=== PATIENT | female | born 1935 | race Caucasian/White ===

== ENCOUNTER 2019-01-17 09:37 | Day surgery (SDC) | payer MEDICARE ==
[2019-01-16 11:16] LABS: CHLORIDE 106 mmol/L (98-107)
[2019-01-16 12:01] LABS: ALANINE AMINOTRANSFERASE 24 U/L (12-78); ALBUMIN 3.6 g/dL (3.4-5.0); ALKALINE PHOSPHATASE 146 U/L (45-117); ANION GAP 8 mmol/L (5-15); BILIRUBIN,TOTAL 0.5 mg/dL (0.2-1.0); CALCIUM 9.2 mg/dL (8.5-10.1); CREATININE 0.88 mg/dL (0.55-1.02); TOTAL PROTEIN 7.1 g/dL (6.4-8.2)
[~2019-01-17] VITALS: Ht 147.3 cm; Wt 66.4 kg
[~2019-01-17 09:37] MED LIST: ATOR20TA37 PO; BUPIVACAINE/PF-EPI 0.5% 1:200K ONE; CARV3.122 PO; CITA40TA5 PO; LORA1TAB PO; LOSA25TA25 PO
[2019-01-17] MEDS ORDERED: LACTATED RINGERS 1,000 ML IV SCH (10:13)
[2019-01-17] MEDS ORDERED: ACETAMINOPHEN 500 MG TABLET PO ONE (10:30)
[2019-01-17] MEDS ORDERED: DIPHENHYDRAMINE 50 MG/ML, 1ML IVPush PRN (10:30)
[2019-01-17] MEDS ORDERED: HYDROmorphone 2 MG/ML, 1ML IVPush PRN (10:30)
[2019-01-17] MEDS ORDERED: GABAPENTIN 300 MG CAPSULE PO ONE (10:30)
[2019-01-17] MEDS ORDERED: PROMETHAZINE 25 MG/ML, 1ML IV PRN (10:30)
[2019-01-17] MEDS ORDERED: FENTANYL PF 100 MCG/2ML IV PRN (10:30)
[2019-01-17] MEDS ORDERED: PROCHLORPERAZINE 5 MG/ML, 2ML IV PRN (10:30)
[2019-01-17] MEDS ORDERED: LABETALOL 5MG/ML, 20ML IV PRN (10:30)
[2019-01-17] MEDS ORDERED: MEPERIDINE/PF 25MG/0.5ML IVPush PRN (10:30)
[2019-01-17] MEDS ORDERED: hydrALAzine 20 MG/ML, 1ML IV PRN (10:30)
[2019-01-17] MEDS ORDERED: METOPROLOL 1 MG/ML, 5ML IV PRN (10:30)
[2019-01-17] MEDS ORDERED: HALOPERIDOL 5 MG/ML IV PRN (10:30)
[2019-01-17] MEDS ORDERED: OXYcodone 5 MG/5 ML ORAL.SOL UDC PO PRN (10:30)
[2019-01-17] MEDS ORDERED: ONDANSETRON ODT 8 MG PO ONE (10:30)
[2019-01-17] MEDS: SCOPOLAMINE PATCH, 1.5MG PATCH.TD72 TD ONE ×2 (10:47→10:50)
[2019-01-17] MEDS ORDERED: ROCURONIUM 10MG/ML,5ML ONE (12:27)
[2019-01-17] MEDS ORDERED: GLYCOPYRROLATE 0.2MG/1ML, 5ML ONE (12:27)
[2019-01-17] MEDS ORDERED: SUCCINYLCHOLINE 20 MG/ML, 10ML ONE (12:27)
[2019-01-17] MEDS ORDERED: DEXAMETHASONE 4 MG/ML, 1ML ONE (12:27)
[2019-01-17] MEDS ORDERED: PROPOFOL 10 MG/ML, 20ML ONE (12:27)
[2019-01-17] MEDS ORDERED: CEFAZOLIN 1,000 MG ONE (12:27)
[2019-01-17] MEDS ORDERED: NEOSTIGMINE 1 MG/ML, 10ML ONE (12:27)
[2019-01-17] MEDS ORDERED: ONDANSETRON 2MG/ML, 2ML ONE (12:27)
[2019-01-17] MEDS ORDERED: FENTANYL PF 250 MCG/5ML ONE (12:27)
[2019-01-17] MEDS ORDERED: LABETALOL 5 MG/ML SYRINGE IV PRN (13:16)
[2019-01-17] MEDS ORDERED: hydrALAzine 20 MG/ML, 1ML ONE (13:32)
== END 2019-01-17 15:30 | disposition home or self-care (01) ==
LOC: OUT 09:37
PROVIDERS: ATTEND Surgery
DX: C50.112 Malignant neoplasm of central portion of left female breast (principal); C77.3 Secondary and unspecified malignant neoplasm of axilla and upper limb lymph nodes; F41.9 Anxiety disorder, unspecified; I10 Essential (primary) hypertension; Z90.710 Acquired absence of both cervix and uterus; Z98.890 Other specified postprocedural states; Z98.49 Cataract extraction status, unspecified eye; Z87.891 Personal history of nicotine dependence; Z72.89 Other problems related to lifestyle; Z96.1 Presence of intraocular lens
CPT/HCPCS: 19301; 36415; 38525; 76098; 80053; 88307; 88329; 93005; C1729; J0330; J0360; J0690; J1100; J2405; J2704; J2710; J3010; Q0162; 88305